=== PATIENT | male | born 2000 | race Caucasian/White ===

== ENCOUNTER 2021-08-10 01:46 | Emergency (ER) | payer OTHER ==
[~2021-08-10] VITALS: Ht 175.2 cm; Wt 83.9 kg
[2021-08-10 02:14] LABS: BILIRUBIN,URINE NEGATIVE (NEGATIVE); CLARITY,URINE CLEAR; COLOR,URINE YELLOW; GLUCOSE, URINE (UA) NEGATIVE (NEGATIVE); KETONES,URINE NEGATIVE (NEGATIVE); LEUKOCYTE ESTERASE ,URINE NEGATIVE (NEGATIVE); NITRITE,URINE NEGATIVE (NEGATIVE); PROTEIN,URINE TRACE (NEGATIVE)
[2021-08-10 02:32] LABS: BASOPHILS # (AUTO) 0.1 10^3/uL (0.0-0.1); BASOPHILS % (AUTO) 1 % (0-10); EOSINOPHILS # (AUTO) 0.1 10^3/uL (0.0-0.3); EOSINOPHILS % (AUTO) 1 % (0-10); HEMATOCRIT 48 % (40-54); HEMOGLOBIN 16.7 g/dL (13.3-17.7); LYMPHOCYTES # (AUTO) 2.7 10^3/uL (1.0-4.0); LYMPHOCYTES % (AUTO) 25 % (12-44); MEAN CORPUSCULAR HEMOGLOBIN 30 pg (25-34); MEAN CORPUSCULAR HGB CONC 35 g/dL (32-36); MEAN CORPUSCULAR VOLUME 87 fL (80-99); MEAN PLATELET VOLUME 10.4 fL (9.0-12.2); MONOCYTES # (AUTO) 0.7 10^3/uL (0.0-1.0); MONOCYTES % (AUTO) 6 % (0-12); NEUTROPHILS % (AUTO) 66 % (42-75); PLATELET COUNT 293 10^3/uL (130-400); WHITE BLOOD COUNT 10.6 10^3/uL (4.3-11.0)
[2021-08-10 02:36] LABS: CHLORIDE 106 MMOL/L (98-107); SODIUM 140 MMOL/L (135-145)
[2021-08-10 02:37] LABS: ALBUMIN 4.6 GM/DL (3.2-4.5)
[2021-08-10 02:38] LABS: CALCIUM 9.7 MG/DL (8.5-10.1)
[2021-08-10 02:39] LABS: GLUCOSE 108 MG/DL (70-105); TOTAL PROTEIN 7.6 GM/DL (6.4-8.2)
[2021-08-10 02:40] LABS: CARBON DIOXIDE 20 MMOL/L (21-32)
[2021-08-10 02:41] LABS: BILIRUBIN,TOTAL 0.5 MG/DL (0.1-1.0)
[2021-08-10 02:43] LABS: ALKALINE PHOSPHATASE 82 U/L (40-136); CREATININE SERUM 0.85 MG/DL (0.60-1.30); GFR ESTIMATED 128
[2021-08-10 02:44] LABS: BUN/CREATININE RATIO 20
[2021-08-10 02:45] LABS: SALICYLATE < 5.0 MG/DL (5.0-20.0)
[2021-08-10 02:46] LABS: ALANINE AMINOTRANSFERASE 29 U/L (0-55)
[2021-08-10 02:48] LABS: AMPHETAMINE SCREEN, URINE NEGATIVE (NEGATIVE); BARBITURATE SCREEN URINE NEGATIVE (NEGATIVE); BENZODIAZEPINES SCREEN URINE NEGATIVE (NEGATIVE); CANNABINOID SCREEN, URINE POSITIVE (NEGATIVE); COCAINE SCREEN URINE NEGATIVE (NEGATIVE); METHADONE STAT NEGATIVE (NEGATIVE); OPIATE SCREEN URINE NEGATIVE (NEGATIVE); OXYCODONE STAT NEGATIVE (NEGATIVE); PROPOXYPHENE STAT NEGATIVE (NEGATIVE); TRICYCLIC ANTIDEPRESSANTS SCRE NEGATIVE (NEGATIVE)
--- NOTE | 2021-08-10 02:54 | ED Psychosocial ---
General Chief Complaint: Psych/Social Disorder Stated Complaint: SUICIDAL IDEATIONS Nursing Triage Note: PT AMBULATORY TO ROOM. PT BROUGHT BY [facility]. PT STATES HE HAS HAD THOUGHTS OF HURTING HIMSELF FOR "ABOUT A MONTH." PT STATES HE WAS THINKING ABOUT TAKING A BUNCH OF PILLS. PT STATES HE HAS TRIED TO OVERDOSE IN THE PAST AND DRINK HIMSELF TO ALCOHOL POISONING IN THE PAST Source: patient (PT GIVES VAGUE AND SOMEWHAT CONVOLUTED INFORMATION) (MATTEO GUERRERO DO) History of Present Illness Date Seen by Provider: Aug 10, 2021 Time Seen by Provider: 01:41 Initial Comments PT ARRIVES VIA [facility] PT WAS PICKED UP AT [facility] PT STATES HE HAS BEEN HAVING SUICIDAL THOUGHTS "FOR AWHILE NOW" --THEN LATER STATES "FOR ABOUT A MONTH" HAS THOUGHT ABOUT TAKING PILLS AND OVERDOSING, BUT DOES NOT HAVE ANY PILLS AND HAS NOT ATTEMPTED TO TAKE ANY PILLS RECENTLY STATES HE HAS TRIED OVERDOSING ON PILLS IN THE PAST AND TRIED TO "DRINK HIMSELF TO ALCOHOL POISONING" IN THE PAST. STATES ABOUT 3 WEEKS AGO, HE CUT HIS LEFT ARM WITH A RAZOR--BUT DID NOT SEEK CARE FOR THAT STATES HIS LAST INPATIENT PSYCH ADMIT WAS ABOUT 3 YEARS AGO AT [facility] IN [place], [place] STATES HE WAS LIVING IN [place] UNTIL ABOUT A YEAR AGO, THEN MOVED TO [place] HE HAD BEEN LIVING AT A [facility]ED [facility] IN [place], [place] FOR 4 MONTHS, BUT LEFT THERE "BECAUSE IT WAS ROMAN CATHOLIC BASED" AT THAT POINT HE MOVED TO [place], [place] ABOUT 3 WEEKS AGO AND WAS STAYING WITH "A FRIEND" STATES "SOMEONE" DROVE HIM TO [place] TODAY, AND HAS BEEN HERE "ABOUT HALF THE DAY" AND STATES "I GOT LEFT SOMEWHERE" --PT IS EXTREMELY VAGUE ABOUT EVENTS OF TODAY--DOES NOT ELABORATE WHY HE IS HERE IN [place], HOW HE GOT HERE, WHO BROUGHT HIM OR WHEN. HE HAS NOT ATTEMPTED TO CONTACT ANYONE TO PICK HIM UP--GIVES NOT REASON WHY HE HAS NOT ATTEMPTED TO CONTACT ANYONE PT STATES HE "LEFT AN ABUSIVE RELATIONSHIP" BUT DOES NOT ELABORATE HOW LONG AGO THIS WAS. HE CLAIMS HE IS NOT HOMELESS, BUT ALSO STATES HE DOES NOT HAVE ANYWHERE TO STAY AT THIS TIME. PT LATER ADMITS THAT HE IS HOMELESS. PT STATES HE HAS BEEN OFF PSYCH MEDICATIONS FOR OVER A YEAR STATES HE IS INTERESTED IN GETTING BACK ON MEDICATION AND SEEKING INPATIENT TREATMENT. STATES HE HAS NOT SEEN ANYONE FOR MENTAL HEALTH IN OVER A YEAR. SYMPTOMS ARE NO DIFFERENT TONIGHT. PT HAS LONG HISTORY OF DRUG AND ALCOHOL ABUSE STATES THAT HE SMOKES MARIJUANA DAILY, AND DRINSK AT LEAST 1/2 OF A FIFTH OF VODKA EVERY DAY, AND HAS HAD AT LEAST THAT MUCH TODAY. STATES HE ALSO USED TO USE METHAMPHETAMINES, BUT DENIES RECENT USE. SNORTED AND SMOKED IT, DENIES IV USE. PT HAS NOT HAD COVID OR FLU VACCINES (MATTEO GUERRERO DO) Allergies and Home Medications Patient Home Medication List Home Medication List Reviewed: Yes (MATTEO GUERRERO DO) Review of Systems Constitutional: no symptoms reported EENTM: no symptoms reported Respiratory: no symptoms reported Cardiovascular: no symptoms reported Gastrointestinal: no symptoms reported Genitourinary: no symptoms reported Musculoskeletal: no symptoms reported Skin: no symptoms reported Psychiatric/Neurological: See HPI (MATTEO GUERRERO DO) Past Resaopb-Dwdrrg-Uajxse Hx Patient Social History Tobacco Use?: Yes Tobacco type used: Cigarettes Smoking Status: Current Everyday Smoker Substance use?: Yes Substance type: Methamphetamine, Marijuana Alcohol Use?: Yes Alcohol type: Hard Liquor Alcohol Frequency: Daily Pt feels they are or have been: No (MATTEO GUERRERO DO) Past Medical History Surgery/Hospitalization HX: DEPRESSION, SUICIDIAL THOUGHTS Surgeries: No Respiratory: No Cardiac: No Neurological: No Genitourinary: No Gastrointestinal: No Musculoskeletal: No Endocrine: No HEENT: No (GLASSES) Cancer: No Psychosocial: Yes (OVERDOSED, CUTTING) Anxiety, Suicide Attempts, Depression Integumentary: No Blood Disorders: No (MATTEO GUERRERO DO) Family Medical History SOCIAL HISTORY: -SMOKES 1 PPD -ETOH--CLAIMS HE DRINKS DAILY--1/2 OF A FIFTH OF VODKA DAILY, PER PT 08/10/21 -THC DAILY, WITH HISTORY OF SMOKING AND SNORTING METHAMPHETAMINES (MATTEO GUERRERO DO) Physical Exam Vital Signs - First Documented 08/10/21 08/10/21 01:46 06:03 Temp 36.3 Pulse 104 Resp 16 B/P (MAP) 142/85 (104) Pulse Ox 96 O2 Delivery Room Air (CHRIS MCCLOUD MD) Capillary Refill : (MATTEO GUERRERO DO) Height, Weight, BMI Height: '" Weight: lbs. oz. kg; 27.00 BMI Method: General Appearance: WD/WN, no apparent distress, other (SPEECH CLEAR, GAIT STEADY, PLEASANT AND COOPERATIVE. DOES NOT APPEAR INTOXICATED AND NO ODOR OF ALCOHOL NOTED. 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 ) (MATTEO GUERRERO DO) Progress/Results/Core Measures Results/Orders Lab Results Laboratory Tests Test 08/10/21 02:00 08/10/21 02:10 Range/Units White Blood Count 10.6 4.3-11.0 10^3/uL Red Blood Count 5.49 4.30-5.52 10^6/uL Hemoglobin 16.7 13.3-17.7 g/dL Hematocrit 48 40-54 % Mean Corpuscular Volume 87 80-99 fL Mean Corpuscular Hemoglobin 30 25-34 pg Mean Corpuscular Hemoglobin Concent 35 32-36 g/dL Red Cell Distribution Width 11.6 10.0-14.5 % Platelet Count 293 130-400 10^3/uL Mean Platelet Volume 10.4 9.0-12.2 fL Immature Granulocyte % (Auto) 1 % Neutrophils (%) (Auto) 66 42-75 % Lymphocytes (%) (Auto) 25 12-44 % Monocytes (%) (Auto) 6 0-12 % Eosinophils (%) (Auto) 1 0-10 % Basophils (%) (Auto) 1 0-10 % Neutrophils # (Auto) 7.0 1.8-7.8 10^3/uL Lymphocytes # (Auto) 2.7 1.0-4.0 10^3/uL Monocytes # (Auto) 0.7 0.0-1.0 10^3/uL Eosinophils # (Auto) 0.1 0.0-0.3 10^3/uL Basophils # (Auto) 0.1 0.0-0.1 10^3/uL Immature Granulocyte # (Auto) 0.1 0.0-0.1 10^3/uL Sodium Level 140 135-145 MMOL/L Potassium Level 4.0 3.6-5.0 MMOL/L Chloride Level 106 98-107 MMOL/L Carbon Dioxide Level 20 L 21-32 MMOL/L Anion Gap 14 5-14 MMOL/L Blood Urea Nitrogen 17 7-18 MG/DL Creatinine 0.85 0.60-1.30 MG/DL Estimat Glomerular Filtration Rate 128 BUN/Creatinine Ratio 20 Glucose Level 108 H 70-105 MG/DL Calcium Level 9.7 8.5-10.1 MG/DL Corrected Calcium 8.5-10.1 MG/DL Total Bilirubin 0.5 0.1-1.0 MG/DL Aspartate Amino Transf (AST/SGOT) 19 5-34 U/L Alanine Aminotransferase (ALT/SGPT) 29 0-55 U/L Alkaline Phosphatase 82 40-136 U/L Total Protein 7.6 6.4-8.2 GM/DL Albumin 4.6 H 3.2-4.5 GM/DL TSH [place] Testing 2.16 0.35-4.94 UIU/ML Salicylates Level < 5.0 L 5.0-20.0 MG/DL Acetaminophen Level < 10 L 10-30 UG/ML Serum Alcohol < 10 <10 MG/DL Influenza Type A (RT-PCR) Not Detected Not Detecte Influenza Type B (RT-PCR) Not Detected Not Detecte SARS-CoV-2 RNA (RT-PCR) Not Detected Not Detecte Urine Color YELLOW Urine Clarity CLEAR Urine pH 6.0 5-9 Urine Specific [place] >=1.030 1.016-1.022 Urine Protein TRACE H NEGATIVE Urine Glucose (UA) NEGATIVE NEGATIVE Urine Ketones NEGATIVE NEGATIVE Urine Nitrite NEGATIVE NEGATIVE Urine Bilirubin NEGATIVE NEGATIVE Urine Urobilinogen 0.2 < = 1.0 MG/DL Urine Leukocyte Esterase NEGATIVE NEGATIVE Urine RBC (Auto) NEGATIVE NEGATIVE Urine RBC NONE /HPF Urine WBC NONE /HPF Urine Squamous Epithelial Cells NONE /HPF Urine Crystals NONE /LPF Urine Bacteria NEGATIVE /HPF Urine Casts NONE /LPF Urine Mucus MODERATE H /LPF Urine Culture Indicated NO Urine Opiates Screen NEGATIVE NEGATIVE Urine Oxycodone Screen NEGATIVE NEGATIVE Urine Methadone Screen NEGATIVE NEGATIVE Urine Propoxyphene Screen NEGATIVE NEGATIVE Urine Barbiturates Screen NEGATIVE NEGATIVE Ur Tricyclic Antidepressants Screen NEGATIVE NEGATIVE Urine Phencyclidine Screen NEGATIVE NEGATIVE Urine Amphetamines Screen NEGATIVE NEGATIVE Urine Methamphetamines Screen NEGATIVE NEGATIVE Urine Benzodiazepines Screen NEGATIVE NEGATIVE Urine Cocaine Screen NEGATIVE NEGATIVE Urine Cannabinoids Screen POSITIVE H NEGATIVE (CHRIS MCCLOUD MD) My Orders Orders - CHRIS MCCLOUD MD Chlamydia Trachomatis Urine (08/10/21 14:48) Neis Mars Dna Urine Test (08/10/21 14:48) (CHRIS MCCLOUD MD) Vital Signs/I&O 08/10/21 15:44 Pulse 84 Resp 16 B/P (MAP) 134/86 Pulse Ox 98 O2 Delivery Room Air (CHRIS MCCLOUD MD) Blood Pressure Mean: 104 Progress Progress Note : Progress Note SLEPT / RESTED QUIETLY FOR ENTIRE ER STAY. 0600--CARE TURNED OVER TO DR. MCCLOUD, MENTAL HEALTH SCREEN PENDING. PT IS SLEEPING AT THIS TIME. (MATTEO GUERRERO DO) Progress Note : Time: 14:45 Progress Note Patient's ER visit has been uneventful since shift change. Screeners recommended inpatient admission. Bed was secured at [facility]. Patient was agreeable for transfer. He requested STI screening which was added to his urine specimen. He is not actively having any STI symptoms at this time and was therefore not treated. He reports prior partners had mentioned they were diagnosed with STI after encounters with him. (CHRIS MCCLOUD MD) Initial ECG Impression Date: Aug 10, 2021 Initial ECG Impression Time: 01:58 Initial ECG Rate: 100 Initial ECG Rhythm: Normal Sinus Initial ECG Comparisson: No Previous ECG Available (MATTEO GUERRERO DO) Departure Communication (Admissions) 0303--[facility] CONTACTED FOR MENTAL HEALTH SCREEN. PT HAS BEEN CLEARED MEDICALLY. THEY REPORT THAT THEY HAVE A LONG LIST OF PATIENTS TO SCREEN AND ARE VERY BEHIND, AND WILL LIKELY BE AFTER 0800 THIS AM BEFORE A SCREEN CAN BE DONE. PT WAS INFORMED AND IS VERY PLEASED ABOUT THIS, HE STATES HE REALLY JUST WANTS TO SLEEP RIGHT NOW. (MATTEO GUERRERO DO) Impression Primary Impression: Passive suicidal ideations Additional Impressions: Homelessness Routine screening for STI (sexually transmitted infection) Disposition: 65 XFER TO PSYCH HOSP/UNIT Condition: Stable Transfer Transfer Reason: Exceeds level of care Time Spoke to Accepting Phy: 03:03 Transfer Progress Notes Excepted by Halina Valera in Dr. Caridad Carney Transfer Time: 15:44 Transfer Facility: [facility] Method of Transfer: HTS (CHRIS MCCLOUD MD) Departure-Patient Inst. Referrals: NO,LOCAL PHYSICIAN (PCP/Family) Primary Care Physician MATTEO GUERRERO DO Aug 10, 2021 02:54 CHRIS MCCLOUD MD Aug 10, 2021 14:47
[2021-08-10 02:56] LABS: ACETAMINOPHEN < 10 UG/ML (10-30)
[2021-08-10 02:59] LABS: BACTERIA,URINE NEGATIVE /HPF
[2021-08-10 03:06] LABS: TSH (THYROID ANALYZER) 2.16 UIU/ML (0.35-4.94)
[2021-08-10 15:44] VITALS: BP 134/86
== END 2021-08-10 15:44 ==
LOC: ER 01:54 → EDBD 01:54 → ER 15:44
DX: R45.851 Suicidal ideations (principal); F17.210 Nicotine dependence, cigarettes, uncomplicated; Z59.00 Homelessness unspecified; Z11.3 Encounter for screening for infections with a predominantly sexual mode of transmission; Z28.310 Unvaccinated for COVID-19
CPT/HCPCS: 80053; 80306; 81000; 84443; 85025; 87491; 87591; 87636; 93005; 99283; G0480 ×3; 36415; 80320; 80329